=== PATIENT | female | born 1955 ===

== ENCOUNTER 2020-01-25 09:18 | Day surgery (SDC) | payer OTHER | END 2020-01-25 13:45 | disposition home or self-care (01) | LOC: AMB-ENDOS 09:18 | PROVIDERS: ATTEND Colon & Rectal Surgery | DX: K57.32 Diverticulitis of large intestine without perforation or abscess without bleeding (principal); K64.0 First degree hemorrhoids; Z20.828 Contact with and (suspected) exposure to other viral communicable diseases ==